=== PATIENT | male | born 1950 ===

== ENCOUNTER → 2021-07-31 12:44 | Outpatient (CLI) | payer OTHER, SELFPAY ==
[2021-07-31 19:39] LABS: Appearance Urine UA CLEAR; Bilirubin Urine UA NEGATIVE (NEGATIVE); Color Urine UA YELLOW; Glucose Urine UA NEGATIVE (Negative); Ketones Urine UA NEGATIVE (NEGATIVE); Leukocyte Esterase Urine UA NEGATIVE (NEGATIVE); Nitrite Urine UA NEGATIVE (Negative); Occult Blood Urine UA NEGATIVE (Negative); Protein Urine UA NEGATIVE (Negative); Urobilinogen Urine UA 0.2 E.U./dL (0.2)
[2021-07-31 19:51] LABS: Bacteria Urine None Seen; Culture Indicated Urine Cult Not Indicated; RBC Urine None Seen (0-5/HPF); WBC Urine None Seen (0-5/HPF)
[2021-07-31 20:09] LABS: Prostate Specific Antigen 10.6 ng/mL (0.10-4.00)
== END ==
PROVIDERS: Referring Provider Urology; Visit Provider Urology
DX: R35.1 Nocturia (principal)
CPT/HCPCS: 81001; 84153

== ENCOUNTER → 2021-10-12 14:14 | Outpatient (CLI) | payer OTHER, SELFPAY ==
[2021-10-12 19:12] LABS: Hematocrit 42.1 % (41-53); Hemoglobin 14.3 g/dL (13.5-17.5); Mean Corpuscular Hemoglobin 31.9 PG (26-34); Mean Corpuscular Volume 93.9 fL (80-100); Platelet Count 195 X10^3/uL (150-400); Red Blood Cell Count 4.48 X10^6/uL (4.5-5.9); Red Cell Distribution Width 13.1 % (11.6-14.8); White Blood Cell Count 6.2 X10^3/uL (4.5-11.0)
[2021-10-12 19:23] LABS: Alanine Aminotransferase 21 IU/L (<50); Albumin 4.6 g/dL (3.5-5.0); Albumin Globulin Ratio 1.7 (1.0-2.8); Alkaline Phosphatase 55 U/L (38-126); Aspartate Aminotransferase 27 IU/L (17-59); BUN Creatinine Ratio 14.1 (6-22); Bilirubin Total 0.4 mg/dL (0.2-1.3); Blood Urea Nitrogen 12 mg/dL (9-20); C-Reactive Protein Quant < 0.5 mg/dL (<1.0); Calcium 9.3 mg/dL (8.4-10.2); Carbon Dioxide 30 mmol/L (22-32); Chloride 103 mmol/L (98-107); Estimated Glomerular Filt Rate > 60.0 mL/min (>60); Globulin 2.7 g/dL (1.7-4.1); Glucose 122 mg/dL (80-110); HEMOLYSIS < 15 (0-50); Sodium 140 mmol/L (137-145); Total Protein 7.3 g/dL (6.3-8.2)
[2021-10-12 19:51] LABS: Prostate Specific Antigen 10.5 ng/mL (0.10-4.00)
[2021-10-12 20:05] LABS: Erythrocyte Sedimentation Rate 2 MM/HR (0-15)
== END ==
PROVIDERS: Visit Provider Internal Medicine
DX: C61 Malignant neoplasm of prostate (principal); M79.10 Myalgia, unspecified site
CPT/HCPCS: 80053; 84153; 85027; 85651; 86140